=== PATIENT | female | born 1945 | race Hispanic/Latino ===

== ENCOUNTER 2020-10-12 09:56 | Outpatient (CLI) | payer MEDICARE ==
--- NOTE | 2020-10-12 11:00 | Mammography Report ---
DIGITAL SCREENING MAMMOGRAM WITH CAD, 10/12/2020 CLINICAL INFORMATION / INDICATION: Routine screening mammography. The patient has a personal history of left breast cancer treated with mastectomy. She reports no new breast symptoms on today's evaluati on. TECHNIQUE: Digital right 2D mammography was obtained in the craniocaudal and mediolateral oblique pr ojections. This examination was interpreted with the benefit of Computer-Aided Detection analysis. COMPARISON: 10/07/2019, 09/24/2018, 09/18/2017 FINDINGS: Breast Density: There are scattered areas of fibroglandular density. No dominant mass, suspicious calcifications, or architectural distortion in the right breast. IMPRESSION: No mammographic evidence of malignancy. Follow up recommendation: Routine yearly BI-RADS Category 1: Negative. A "normal" or negative report should not discourage follow up or biopsy of a clinically significant f inding. A written summary of these findings will be mailed to the patient. The patient will be entered into a mammography reporting system which will generate a reminder letter for the patient's next appointmen t at the appropriate interval. The [employer] recommends yearly mammograms starting at age 40 and continuing as l rich as a woman is in good health. Breast MRI is recommended for women with an approximate 20-25% or greater lifetime risk of breast cancer, including women with a strong family history of breast or ova ernestina cancer or who have been treated for Hodgkin's disease. Signer Name: Lucita Green MD Signed: 10/12/2020 10:56 AM Workstation Name: [email or web address]
== END 2020-10-12 09:57 | disposition home or self-care (01) ==
LOC: SPVWC 09:56
PROVIDERS: ATTEND Surgery
DX: Z12.31 Encounter for screening mammogram for malignant neoplasm of breast (principal)

== ENCOUNTER 2021-04-25 10:57 | Outpatient (CLI) | payer MEDICARE ==
--- NOTE | 2021-04-25 11:59 | Ultrasound Report ---
ULTRASOUND BREAST LEFT LIMITED, 04/25/2021 CLINICAL INFORMATION / INDICATION: BREAST LUMP N63. TECHNIQUE: Targeted ultrasound evaluation was performed of the area of interest. COMPARISON: None. FINDINGS: Ultrasound imaging of the left breast demonstrates normal subcutaneous echotexture without evidence o f focal fluid collection mass or architectural distortion. IMPRESSION: No sonographic evidence of malignancy. Follow up recommendation: Clinical exam BI-RADS Category 2: Benign. A normal or "negative" report should not preclude biopsy or follow-up of a clinically suspicious find ing. Signer Name: Ernesto Nettles DO Signed: 04/25/2021 11:55 AM Workstation Name: [email or web address]
== END 2021-04-25 10:58 | disposition home or self-care (01) ==
LOC: SPVWC 10:57
PROVIDERS: ATTEND Physician Assistant
DX: N63.0 Unspecified lump in unspecified breast (principal)

== ENCOUNTER 2021-10-02 10:19 | Outpatient (CLI) | payer MEDICARE ==
--- NOTE | 2021-10-02 12:04 | Ultrasound Report ---
ULTRASOUND BREAST LEFT LIMITED, 10/02/2021 CLINICAL INFORMATION / INDICATION: C50.412. Status post left mastectomy 6 years ago. Patient reports soreness along left breast times one year. TECHNIQUE: Targeted ultrasound evaluation was performed of the area of interest. COMPARISON: Left breast ultrasound from 04/25/2021. FINDINGS: Stable postmastectomy changes are seen in the left breast without identification of a suspicious mass or other significant abnormality to explain the patient's soreness. IMPRESSION: No sonographic evidence of malignancy. Follow up recommendation: Clinical exam BI-RADS Category 2: BENIGN. A normal or "negative" report should not preclude biopsy or follow-up of a clinically suspicious find ing. Signer Name: Maikol Carty MD Signed: 10/02/2021 12:00 PM Workstation Name: [email or web address]
== END 2021-10-02 10:20 | disposition home or self-care (01) ==
LOC: US 10:19
PROVIDERS: ATTEND Internal Medicine Hematology & Oncology
DX: C50.412 Malignant neoplasm of upper-outer quadrant of left female breast (principal); Z23 Encounter for immunization; D70.9 Neutropenia, unspecified; I82.409 Acute embolism and thrombosis of unspecified deep veins of unspecified lower extremity; E53.8 Deficiency of other specified B group vitamins; I82.509 Chronic embolism and thrombosis of unspecified deep veins of unspecified lower extremity; K86.2 Cyst of pancreas; R25.2 Cramp and spasm; I48.91 Unspecified atrial fibrillation; R45.86 Emotional lability; N94.9 Unspecified condition associated with female genital organs and menstrual cycle; M85.80 Other specified disorders of bone density and structure, unspecified site; M19.019 Primary osteoarthritis, unspecified shoulder; T45.1X5A Adverse effect of antineoplastic and immunosuppressive drugs, initial encounter; T45.1X5D Adverse effect of antineoplastic and immunosuppressive drugs, subsequent encounter; T82.598A Other mechanical complication of other cardiac and vascular devices and implants, initial encounter; Z79.811 Long term (current) use of aromatase inhibitors

== ENCOUNTER 2021-10-18 09:59 | Outpatient (CLI) | payer MEDICARE ==
--- NOTE | 2021-10-19 09:49 | Mammography Report ---
DIGITAL SCREENING MAMMOGRAM WITH CAD, 10/18/2021 CLINICAL INFORMATION / INDICATION: Routine screening mammography. SCREENING MAMMO Z12.31 TECHNIQUE: Digital right 2D mammography was obtained in the craniocaudal and mediolateral oblique pr ojections. This examination was interpreted with the benefit of Computer-Aided Detection analysis. COMPARISON: 10/12/2020 FINDINGS: Breast Density: There are scattered areas of fibroglandular density. No dominant mass, suspicious calcifications, or architectural distortion in the right breast. IMPRESSION: No mammographic evidence of malignancy. Follow up recommendation: Routine yearly BI-RADS Category 1: NEGATIVE A "normal" or negative report should not discourage follow up or biopsy of a clinically significant f inding. A written summary of these findings will be mailed to the patient. The patient will be entered into a mammography reporting system which will generate a reminder letter for the patient's next appointmen t at the appropriate interval. The [employer] recommends yearly mammograms starting at age 40 and continuing as l rich as a woman is in good health. Breast MRI is recommended for women with an approximate 20-25% or greater lifetime risk of breast cancer, including women with a strong family history of breast or ova ernestina cancer or who have been treated for Hodgkin's disease. Signer Name: Davon Prather MD Signed: 10/19/2021 9:45 AM Workstation Name: [email or web address]
== END 2021-10-18 10:00 | disposition home or self-care (01) ==
LOC: SPVWC 09:59
PROVIDERS: ATTEND Surgery
DX: Z12.31 Encounter for screening mammogram for malignant neoplasm of breast (principal)